=== PATIENT | female | born 1990 | race Caucasian/White ===

== ENCOUNTER 2023-01-03 07:36 | Outpatient (CLI) | payer BC | END 2023-01-03 07:37 | disposition home or self-care (01) | LOC: CSHULT 07:36 | PROVIDERS: ATTEND Internal Medicine Gastroenterology | DX: R10.13 Epigastric pain (principal); Z83.71 Family history of colonic polyps; Z83.79 Family history of other diseases of the digestive system | CPT/HCPCS: 76700 ==